=== PATIENT | female | born 1985 | race Caucasian/White ===

== ENCOUNTER 2019-10-07 10:34 | Outpatient (CLI) | payer SELFPAY ==
--- NOTE | 2019-10-07 | XR_ITS ---
WS: [id number] XR wrist RT min 3V* [id number] REASON FOR EXAM: WRIST PAIN ACUTE FINDINGS: Impacted fracture of the radius comminuted mild dorsal angulated. XR/XR wrist RT min 3V* [id number] IMPRESSION: Mild dorsal angulated impacted fracture of the radius.
== END 2019-10-07 10:35 | disposition home or self-care (01) ==
LOC: RADOUTREAD 12:23
PROVIDERS: Family Provider Nurse Practitioner Family; PCP Nurse Practitioner Family; Visit Provider Nurse Practitioner Family
DX: Z76.89 Persons encountering health services in other specified circumstances (principal)

== ENCOUNTER 2019-10-08 15:27 | Outpatient (CLI) | payer SELFPAY | END 2019-10-08 15:28 | disposition home or self-care (01) | LOC: SPT 15:28 | PROVIDERS: Family Provider Nurse Practitioner Family; PCP Nurse Practitioner Family; Visit Provider Orthopaedic Surgery | DX: S52.531A Colles' fracture of right radius, initial encounter for closed fracture (principal); X58.XXXA Exposure to other specified factors, initial encounter | CPT/HCPCS: L3982 ==

== ENCOUNTER → 2019-10-15 13:46 | Outpatient (BNVA) | payer SELFPAY | PROVIDERS: Family Provider Nurse Practitioner Family; PCP Nurse Practitioner Family; Visit Provider Orthopaedic Surgery | DX: S52.531A Colles' fracture of right radius, initial encounter for closed fracture (principal); X58.XXXA Exposure to other specified factors, initial encounter | CPT/HCPCS: 73110 ==

== ENCOUNTER → 2019-11-05 13:51 | Outpatient (BNVA) | payer SELFPAY | PROVIDERS: Family Provider Nurse Practitioner Family; PCP Nurse Practitioner Family; Visit Provider Orthopaedic Surgery | DX: S52.531A Colles' fracture of right radius, initial encounter for closed fracture (principal); X58.XXXA Exposure to other specified factors, initial encounter | CPT/HCPCS: 73110 ==

== ENCOUNTER → 2019-12-03 09:24 | Outpatient (BNVA) | payer SELFPAY | PROVIDERS: Family Provider Nurse Practitioner Family; PCP Nurse Practitioner Family; Visit Provider Orthopaedic Surgery | DX: S52.531A Colles' fracture of right radius, initial encounter for closed fracture (principal); X58.XXXA Exposure to other specified factors, initial encounter | CPT/HCPCS: 73110 ==

== ENCOUNTER 2021-07-02 12:42 | Emergency (ER) | payer OTHER, SELFPAY ==
[2021-07-02] VITALS (10 sets, daily range): BP systolic 112–141; BP diastolic 75–86; PULSE 71; RESP 16–18; TEMP 37; O2SAT 96–100; BMI 32.5
[2021-07-02 13:53] LABS: Basophils # 0.1 10^3/uL (0.0-0.1); Basophils % 0.7 %; Eosinophils # 0.1 10^3/uL (0.0-0.8); Eosinophils % 1.2 %; Hematocrit 39.8 % (37.0-47.0); Lymphocytes # 3.3 10^3/uL (0.8-4.8); Lymphocytes % 29.8 %; Mean Corpuscular HGB Conc 32.7 g/dL (30.0-36.0); Mean Corpuscular Hemoglobin 27.4 pg (28.0-34.0); Mean Corpuscular Volume 83.8 fl (81-99); Mean Platelet Volume 11.1 fL (7.4-10.4); Monocytes # 0.7 10^3/uL (0.2-0.9); Monocytes % 6.6 %; Neutrophils # 6.77 10^3/uL (1.8-7.7); Neutrophils % 61.4 %; Nucleated Red Blood Cells % 0 %; Platelet Count 343 10^3/cmm (130-400); Red Blood Count 4.75 10^6/uL (4.1-5.3); Red Cell Distribution Width 13.6 % (12.1-15.1)
[2021-07-02 14:08] LABS: Bilirubin Urine Neg (Negative); Blood Urine Neg (Negative); Glucose Urine UA Norm (Normal); HCG Qualitative Urine. Negative (Negative); Ketones Urine 1+ (Negative); Leukocyte Esterase Urine 2+ (Negative); Nitrate Urine Negative (Negative); Protein Urine Neg (Negative); Specific Gravity, Urine 1.025 (1.005-1.030); Urine Appearance Clear (CLEAR); Urine Color Yellow (Yellow); Urobilinogen Urine Norm (Negative); pH Urine 5 (5-7)
[2021-07-02 14:09] LABS: Add Urine Microscopic? YES
[2021-07-02 14:15] LABS: Add Urine Culture? No; Bacteria Urine 1+ /hpf; Mucus Urine 2+ /hpf; WBC Urine 0-4 /hpf (0-5)
[2021-07-02 14:17] LABS: Alanine Aminotransferase 23 U/L (0-33); Albumin Level 4.4 g/dL (3.5-5.2); Alkaline Phosphatase 81 IU/L (35-105); Anion Gap 17.9 (5-19); Aspartate Amino Transferase 17 U/L (0-32); Blood Urea Nitrogen 9 mg/dL (6-20); Calcium 8.5 mg/dL (8.5-10.5); Carbon Dioxide 20 mmol/L (22-29); Chloride 103 mmol/L (98-107); Globulin 2.9 g/dL (1.3-4.6); Glomerular Filtration Rate 82.1 mL/min (90-130); Glucose 73 mg/dL (65-115); Lipase 26 U/L (13-60); Osmolality Calculated 281 mOsm/kg (285-295); Potassium 3.9 mmol/L (3.5-5.1); Sodium 137 mmol/L (136-145); Total Bilirubin 0.4 mg/dL (0.15-1.2); Total Protein 7.3 g/dL (6.6-8.7)
--- NOTE | 2021-07-02 17:25 | USR_ITS ---
PROCEDURE INFORMATION: Exam: US Abdomen, Limited; Right Upper Quadrant Exam date and time: 07/02/2021 5:25 PM Age: 36 years old Clinical indication: Abdominal pain; Acute; Additional info: Ruq abd pain TECHNIQUE: Imaging protocol: US abdomen. Real time ultrasound with image documentation. Limited exam focused on the right upper quadrant. COMPARISON: No relevant prior studies available. FINDINGS: Liver: Hepatic steatosis. Gallbladder: Cholelithiasis. Gallbladder wall normal in thickness. Positive Castillo sign is seen. Common bile duct: Common bile duct dilated to 9.8 mm without obstructing lesion. Pancreas: Visualized pancreas is unremarkable. Right kidney: Normal. No mass. No hydronephrosis. US/US gall bladder [id number] IMPRESSION: 1. Cholelithiasis with common bile duct dilation to 9.8 mm and a positive Castillo sign may reflect an evolving cholecystitis. Nuclear medicine HIDA scan could further evaluate this. 2. Hepatic steatosis.
--- NOTE | 2021-07-02 17:32 | ED_ITS ---
Documented by User: Phu Herrmann DO 07/03/21 09:57 HPI - Abdominal Pain General: Chief Complaint: Abdominal Pain Stated Complaint: abd pains Time Seen by Provider: 07/02/21 16:27 History of Present Illness: HPI narrative: 36-year-old female presents emergency room complaining of abdominal pain for the last week. Patient reports she has a history of gallbladder dysfunction she notes anything she eats seems to cause nausea and abdominal cramping she is not had any vomiting or diarrhea with that usually last for several hours becoming increasingly more intense. She denies any medication melena hematemesis coffee-ground emesis. Stat C- section but no other previous abdominal surgeries MD elicited complaint: abdominal pain Onset (ago): week(s) Pain Consistency: constant Location: RUQ Severity: severe Quality: cramping Radiation: back Exacerbating factors: eating Relieving factors: nothing Associated Symptoms: Reports anorexia, bloating, change in bowel habits, change in stool character, GI cramping and poor appetite; Denies belching, chills, coffee ground emesis, constipation, diarrhea, dyspepsia, dysuria, excessive flatus, fever(s), heartburn, hematochezia, hematuria, hematemesis, fecal incontinence, loose stools, melena, nausea, syncope and vomiting Related Data: Date of Last Menstrual Period: 07/17/21 Review of Systems Const: Denies: fever(s) or chills ENMT: Denies: throat pain, ear or mastoid pain, nasal discharge or nasal congestion Card: Denies: syncope Resp: Denies: dyspnea, productive cough or non-productive cough GI: Reports: bloating, GI cramping, change in bowel habits and change in stool character; Denies: nausea, vomiting, hematemesis, coffee ground emesis, heartburn, diarrhea, constipation, belching, excessive flatus, fecal incontinence, hematochezia or melena : Denies: dysuria or hematuria Skin/Breast: Denies: rash or pruritus PFS ED PFSH: Medical History Cellulitis Tick bite Female Reproductive History: Date of last menstrual period: 07/17/21 Physical Exam Const: COMMON NORMALS: no acute distress GENERAL APPEARANCE: cooperative and comfortable ORIENTATION/CONSCIOUSNESS: Yes awake, Yes oriented to person, Yes oriented to place and Yes oriented to time HENMT: COMMON NORMALS: normocephalic, atraumatic and hearing grossly normal bilaterally HEAD & SCALP: normocephalic and atraumatic Neck/C-Spine: COMMON NORMALS: no JVD Resp: COMMON NORMALS: normal respiratory effort, No retractions, No use of accessory muscles and clear to auscultation bilaterally AUSCULTATION: clear to auscultation bilaterally Cardio: COMMON NORMALS: no JVD, regular rate, regular rhythm and No murmurs present (Cardio) RATE: regular rate RHYTHM: regular rhythm GI: COMMON NORMALS: No hepatosplenomegaly present AUSCULTATION: Yes normoactive bowel sounds PALPATION: Yes Tenderness to palpation present (GI) Details: RUQ (Positive Castillo sign), No Guarding due to palpation present (GI) and Yes No hepatosplenomegaly present Extremity: COMMON NORMALS: normal to inspection, capillary refill normal, no clubbing, cyanosis or edema, no calf tenderness and no pedal edema Neuro: SENSORIUM/ORIENTATION: Yes oriented to person, Yes oriented to place and Yes oriented to time Skin: COMMON NORMALS: no rashes or lesions noted GENERAL SKIN EXAM: no rashes or lesions noted Course Vital Signs: Vital signs: Vital Signs Temperature 98.6 F 07/02/21 13:38 Pulse Rate 84 07/03/21 01:37 Respiratory Rate 17 07/03/21 01:37 Blood Pressure 108/63 07/03/21 01:37 Pulse Oximetry 99 07/03/21 01:37 MDM - Abdominal Pain MDM Narrative: Medical decision making narrative: Laboratory test so far generally unremarkable. Ultrasound leg gallbladder however shows dilation of common bile duct MRCP has been ordered care turned over to Dr. Church at change shift see his notes for final diagnosis and disposition. Lab Data: Labs: Lab Results 07/02/21 07/02/21 07/02/21 13:46 13:46 13:50 WBC 11.0 10^3/uL H 10 ^3/uL (4.0-10.0) RBC 4.75 10^6/uL 10^6 /uL (4.1-5.3) Hgb 13.0 g/dL g/dL (11.5-15.3) Hct 39.8 % % (37.0-47.0) MCV 83.8 fl fl (81-99) MCH 27.4 pg L pg (28.0-34.0) MCHC 32.7 g/dL g/dL (30.0-36.0) RDW 13.6 % % (12.1-15.1) Plt Count 343 10^3/cmm 10^3 /cmm (130-400) MPV 11.1 fL H fL (7.4-10.4) Neut % (Auto) 61.4 % % Lymph % (Auto) 29.8 % % Wagoner % (Auto) 6.6 % % Eos % (Auto) 1.2 % % Baso % (Auto) 0.7 % % Neut # (Auto) 6.77 10^3/uL 10^3 /uL (1.8-7.7) Lymph # (Auto) 3.3 10^3/uL 10^3/ uL (0.8-4.8) Wagoner # (Auto) 0.7 10^3/uL 10^3/ uL (0.2-0.9) Eos # (Auto) 0.1 10^3/uL 10^3/ uL (0.0-0.8) Baso # (Auto) 0.1 10^3/uL 10^3/ uL (0.0-0.1) Nucleated RBC % (a uto) 0 % % Nucleated RBCs # 0.0 /100WBC /100W BC Sodium 137 mmol/L mmol/L (136-145) Potassium 3.9 mmol/L mmol/L (3.5-5.1) Chloride 103 mmol/L mmol/L (98-107) Carbon Dioxide 20 mmol/L L mmol/ L (22-29) Anion Gap 17.9 (5-19) BUN 9 mg/dL mg/dL (6-20) Creatinine 0.8 mg/dL mg/dL (0.5-0.9) GFR Calculation 82.1 mL/min L mL/ min (90-130) Glucose 73 mg/dL mg/dL (65-115) Calculated Osmolal ity 281 mOsm/kg L mOs m/kg (285-295) Calcium 8.5 mg/dL mg/dL (8.5-10.5) Total Bilirubin 0.4 mg/dL mg/dL (0.15-1.2) AST 17 U/L U/L (0-32) ALT 23 U/L U/L (0-33) Alkaline Phosphata se 81 IU/L IU/L (35-105) Total Protein 7.3 g/dL g/dL (6.6-8.7) Albumin 4.4 g/dL g/dL (3.5-5.2) Globulin 2.9 g/dL g/dL (1.3-4.6) Lipase 26 U/L U/L (13-60) HCG, Qual Negative (Negative) Urine Color Urine Appearance Urine pH Ur Specific Gravit y Urine Protein Urine Glucose (UA) Urine Ketones Urine Blood Urine Nitrate Urine Bilirubin Urine Urobilinogen Ur Leukocyte Raven ase Urine RBC Urine WBC Ur Squamous Epith Cells Amorphous Sediment Urine Bacteria Urine Mucus SARS-CoV-2 Ag (Rap id) 07/02/21 07/03/21 13:50 00:35 WBC RBC Hgb Hct MCV MCH MCHC RDW Plt Count MPV Neut % (Auto) Lymph % (Auto) Wagoner % (Auto) Eos % (Auto) Baso % (Auto) Neut # (Auto) Lymph # (Auto) Wagoner # (Auto) Eos # (Auto) Baso # (Auto) Nucleated RBC % (a uto) Nucleated RBCs # Sodium Potassium Chloride Carbon Dioxide Anion Gap BUN Creatinine GFR Calculation Glucose Calculated Osmolal ity Calcium Total Bilirubin AST ALT Alkaline Phosphata se Total Protein Albumin Globulin Lipase HCG, Qual Urine Color Yellow (Yellow) Urine Appearance Clear (CLEAR) Urine pH 5 (5-7) Ur Specific Gravit y 1.025 (1.005-1.030) Urine Protein Neg (Negative) Urine Glucose (UA) Norm (Normal) Urine Ketones 1+ H (Negative) Urine Blood Neg (Negative) Urine Nitrate Negative (Negative) Urine Bilirubin Neg (Negative) Urine Urobilinogen Norm mg/dL mg/dL (Negative) Ur Leukocyte Raven ase 2+ H (Negative) Urine RBC None /hpf /hpf (0-2) Urine WBC 0-4 /hpf H /hpf (0-5) Ur Squamous Epith Cells 5-10 /hpf H /hpf (0-5) Amorphous Sediment Not Reportable Urine Bacteria 1+ /hpf H /hpf (NONE) Urine Mucus 2+ /hpf /hpf SARS-CoV-2 Ag (Rap id) Negative (Negative) Discharge Plan Discharge Patient Disposition: Xfer Short-Term Hosp Clinical Impression: Abdominal pain Qualifiers: Abdominal location: right upper quadrant Qualified Code(s): R10.11 - Right upper quadrant pain Condition: Stable Referrals: SOTO Adair, JYOTHI [Primary Care Provider] - Patient Instructions: Abdominal Pain (ED) Coding Level of Care Code ED Garnett Machine Operator for [facility] Fwd Exam Comprehensive Documented by User: Lori Church MD 07/03/21 00:14 HPI - Abdominal Pain General: Chief Complaint: Abdominal Pain Stated Complaint: abd pains Time Seen by Provider: 07/02/21 16:27 PFSH ED PFSH: Medical History Cellulitis Tick bite Physical Exam Const: COMMON NORMALS: no acute distress, patient oriented x3 and healthy appearing HENMT: COMMON NORMALS: normocephalic and atraumatic HEAD & SCALP: normocephalic and atraumatic Eye: COMMON NORMALS: Equal, round and reactive pupils present and EOMs intact bilaterally PUPIL: Yes Equal, round and reactive pupils present Neck/C-Spine: COMMON NORMALS: full ROM and supple Chest: COMMONS NORMALS: normal inspection of the chest and normal palpation of entire chest wall Resp: COMMON NORMALS: normal respiratory effort, No retractions, No use of accessory muscles and clear to auscultation bilaterally AUSCULTATION: clear to auscultation bilaterally Cardio: COMMON NORMALS: regular rate, regular rhythm and No murmurs present (Cardio) RATE: regular rate RHYTHM: regular rhythm GI: COMMON NORMALS: Normal to inspection, nondistended, normoactive bowel sounds present, Soft to palpation and no masses PALPATION: Yes Soft to palpation and Yes Tenderness to palpation present (GI) Details: RUQ Extremity: COMMON NORMALS: normal to inspection and full ROM Neuro: COMMON NORMALS: patient oriented x3, moves all extremities and no focal motor deficits Psych: COMMON NORMALS: mental status grossly normal, Normal thought process present and cooperative THOUGHT PROCESS: Normal thought process present Skin: COMMON NORMALS: no rashes or lesions noted and no wounds GENERAL SKIN EXAM: no rashes or lesions noted Course Vital Signs: Vital signs: Vital Signs Temperature 98.6 F 07/02/21 13:38 Pulse Rate 84 07/03/21 01:37 Respiratory Rate 17 07/03/21 01:37 Blood Pressure 108/63 07/03/21 01:37 Pulse Oximetry 99 07/03/21 01:37 MDM - Abdominal Pain MDM Narrative: Medical decision making narrative: Patient presents here with right upper quadrant abdominal pain has been severe in nature she is required multiple doses of Dilaudid imaging here showed dilatated common bile duct along with a gallstone. Patient given IV antibiotics I spoke to surgeon on-call Dr. Coburn who felt patient likely needs an ERCP and transfer to higher level of care for GI I spoke to physician at [place] and will transfer there. Lab Data: Labs: Lab Results 07/02/21 07/02/21 07/02/21 13:46 13:46 13:50 WBC 11.0 10^3/uL H 10 ^3/uL (4.0-10.0) RBC 4.75 10^6/uL 10^6 /uL (4.1-5.3) Hgb 13.0 g/dL g/dL (11.5-15.3) Hct 39.8 % % (37.0-47.0) MCV 83.8 fl fl (81-99) MCH 27.4 pg L pg (28.0-34.0) MCHC 32.7 g/dL g/dL (30.0-36.0) RDW 13.6 % % (12.1-15.1) Plt Count 343 10^3/cmm 10^3 /cmm (130-400) MPV 11.1 fL H fL (7.4-10.4) Neut % (Auto) 61.4 % % Lymph % (Auto) 29.8 % % Wagoner % (Auto) 6.6 % % Eos % (Auto) 1.2 % % Baso % (Auto) 0.7 % % Neut # (Auto) 6.77 10^3/uL 10^3 /uL (1.8-7.7) Lymph # (Auto) 3.3 10^3/uL 10^3/ uL (0.8-4.8) Wagoner # (Auto) 0.7 10^3/uL 10^3/ uL (0.2-0.9) Eos # (Auto) 0.1 10^3/uL 10^3/ uL (0.0-0.8) Baso # (Auto) 0.1 10^3/uL 10^3/ uL (0.0-0.1) Nucleated RBC % (a uto) 0 % % Nucleated RBCs # 0.0 /100WBC /100W BC Sodium 137 mmol/L mmol/L (136-145) Potassium 3.9 mmol/L mmol/L (3.5-5.1) Chloride 103 mmol/L mmol/L (98-107) Carbon Dioxide 20 mmol/L L mmol/ L (22-29) Anion Gap 17.9 (5-19) BUN 9 mg/dL mg/dL (6-20) Creatinine 0.8 mg/dL mg/dL (0.5-0.9) GFR Calculation 82.1 mL/min L mL/ min (90-130) Glucose 73 mg/dL mg/dL (65-115) Calculated Osmolal ity 281 mOsm/kg L mOs m/kg (285-295) Calcium 8.5 mg/dL mg/dL (8.5-10.5) Total Bilirubin 0.4 mg/dL mg/dL (0.15-1.2) AST 17 U/L U/L (0-32) ALT 23 U/L U/L (0-33) Alkaline Phosphata se 81 IU/L IU/L (35-105) Total Protein 7.3 g/dL g/dL (6.6-8.7) Albumin 4.4 g/dL g/dL (3.5-5.2) Globulin 2.9 g/dL g/dL (1.3-4.6) Lipase 26 U/L U/L (13-60) HCG, Qual Negative (Negative) Urine Color Urine Appearance Urine pH Ur Specific Gravit y Urine Protein Urine Glucose (UA) Urine Ketones Urine Blood Urine Nitrate Urine Bilirubin Urine Urobilinogen Ur Leukocyte Raven ase Urine RBC Urine WBC Ur Squamous Epith Cells Amorphous Sediment Urine Bacteria Urine Mucus SARS-CoV-2 Ag (Rap id) 07/02/21 07/03/21 13:50 00:35 WBC RBC Hgb Hct MCV MCH MCHC RDW Plt Count MPV Neut % (Auto) Lymph % (Auto) Wagoner % (Auto) Eos % (Auto) Baso % (Auto) Neut # (Auto) Lymph # (Auto) Wagoner # (Auto) Eos # (Auto) Baso # (Auto) Nucleated RBC % (a uto) Nucleated RBCs # Sodium Potassium Chloride Carbon Dioxide Anion Gap BUN Creatinine GFR Calculation Glucose Calculated Osmolal ity Calcium Total Bilirubin AST ALT Alkaline Phosphata se Total Protein Albumin Globulin Lipase HCG, Qual Urine Color Yellow (Yellow) Urine Appearance Clear (CLEAR) Urine pH 5 (5-7) Ur Specific Gravit y 1.025 (1.005-1.030) Urine Protein Neg (Negative) Urine Glucose (UA) Norm (Normal) Urine Ketones 1+ H (Negative) Urine Blood Neg (Negative) Urine Nitrate Negative (Negative) Urine Bilirubin Neg (Negative) Urine Urobilinogen Norm mg/dL mg/dL (Negative) Ur Leukocyte Raven ase 2+ H (Negative) Urine RBC None /hpf /hpf (0-2) Urine WBC 0-4 /hpf H /hpf (0-5) Ur Squamous Epith Cells 5-10 /hpf H /hpf (0-5) Amorphous Sediment Not Reportable Urine Bacteria 1+ /hpf H /hpf (NONE) Urine Mucus 2+ /hpf /hpf SARS-CoV-2 Ag (Rap id) Negative (Negative) Discharge Plan Discharge Patient Disposition: Xfer Short-Term Hosp Clinical Impression: Abdominal pain Qualifiers: Abdominal location: right upper quadrant Qualified Code(s): R10.11 - Right upper quadrant pain Condition: Stable Referrals: SOTO Adair, JYOTHI [Primary Care Provider] - Patient Instructions: Abdominal Pain (ED) Coding Level of Care Code ED [facility]ett Machine Operator for [facility] Fwd Exam Comprehensive
--- NOTE | 2021-07-02 18:02 | MRR_ITS ---
PROCEDURE INFORMATION: Exam: MR Abdomen Without Contrast Exam date and time: 07/02/2021 6:02 PM Age: 36 years old Clinical indication: Abdominal pain; Acute; Additional info: Dilated common bile duct right upper quadrant abdominal pain TECHNIQUE: Imaging protocol: MR of the abdomen without contrast. COMPARISON: US gall bladder [id number] 07/02/2021 5:55 PM FINDINGS: Liver: No mass. Gallbladder and bile ducts: There is a 2 cm gallstone at the gallbladder neck. No gallbladder wall thickening or pericholecystic fluid. Dilated common bile duct up to 1.5 cm. There is also moderate dilation of the central intrahepatic biliary system which becomes mildly dilated more peripherally. No filling defect is seen within the common bile duct to indicate choledocholithiasis. There is abrupt tapering at the distal common bile duct. There does appear to be a portion of the distal common bile duct which is normal caliber which is best seen on series 11, image 8. Pancreas: Unremarkable. No ductal dilation. Spleen: Unremarkable. No splenomegaly. Adrenal glands: Unremarkable. No mass. Kidneys and ureters: Unremarkable. No solid mass. No hydronephrosis. Stomach and bowel: Visualized stomach and intestines are unremarkable. Intraperitoneal space: No free fluid. Arteries: No abdominal aortic aneurysm. Bones/joints: Unremarkable. Soft tissues: Unremarkable. MR/MR MRCP [id number] IMPRESSION: 1. Markedly dilated common bile duct up to 1.5 cm with abrupt tapering distally as well as moderate intrahepatic biliary dilation centrally. No filling defect is seen to suggest choledocholithiasis. There does appear to be a segment of the distal common bile duct which is normal in caliber. Findings are most suggestive of either focal stricturing or potentially choledochal cysts (type IV). 2. There is a 2 cm stone in the gallbladder neck without MR findings to suggest acute cholecystitis.
[2021-07-02] MEDS: sodium chloride 0.9% 1,000 ML 999 ML IV (18:17)
[2021-07-02] MEDS: morphine 4 mg/mL SDV 1 mL IVP (18:20)
[2021-07-02] MEDS: ondansetron 2 mg/ML SDV 2 mL 4 MG IVP ×2 (18:20→19:24)
--- NOTE | 2021-07-02 18:41 | PC.NURSE ---
Pt to [facility] now via EMS for MRI.
[2021-07-02] MEDS: diphenhydrAMINE 50 mg/mL SDV 1mL IVP (19:23)
[2021-07-02] MEDS: HYDROmorphone 1 mg/mL INJ 1 mL IVP (19:23)
[2021-07-02] MEDS: metoclopramide 5 mg/mL SDV 2 mL 10 MG IVP (19:24)
[2021-07-02] MEDS: piperacillin-tazobactam 3.375 GM in sodium chloride 0.9% (plus) 50 ML IV (21:54)
--- NOTE | 2021-07-02 23:29 | PC.NURSE ---
Pt resting in bed. Rates pain 2/10; much improved. Call light in reach. Lights off at patient request.
[2021-07-03 00:37] VITALS: BP 105/67; PULSE 82; RESP 18; O2SAT 99
[2021-07-03 00:59] LABS: SARS Covid-2 Antigen Negative (Negative)
[2021-07-03 01:37] VITALS: BP 108/63; PULSE 84; RESP 17; O2SAT 99
== END 2021-07-03 03:13 | disposition short-term general hospital (02) ==
PROVIDERS: Emergency Medicine; Emergency Provider Emergency Medicine; PCP Nurse Practitioner Family
DX: R10.11 Right upper quadrant pain (principal); Z20.822 Contact with and (suspected) exposure to COVID-19
CPT/HCPCS: 36415; 74181; 76705; 80053; 81001; 81025; 83690; 85025; 87426; 96365; 96375; 96376; 99285; J1170; J1200; J2270; J2405; J2543; J2765; J7030

== ENCOUNTER → 2021-07-14 12:09 | Outpatient (BNVA) | payer SELFPAY | PROVIDERS: PCP Nurse Practitioner Family; Visit Provider Family Medicine | DX: Z90.49 Acquired absence of other specified parts of digestive tract (principal) | CPT/HCPCS: 80053 ==

== ENCOUNTER → 2022-02-14 11:05 | Outpatient (BNVA) | payer SELFPAY | PROVIDERS: PCP Nurse Practitioner Family; Visit Provider Nurse Practitioner Family | DX: N89.8 Other specified noninflammatory disorders of vagina (principal); N93.9 Abnormal uterine and vaginal bleeding, unspecified; Z12.4 Encounter for screening for malignant neoplasm of cervix; Z00.00 Encounter for general adult medical examination without abnormal findings | CPT/HCPCS: 87070; 87077; 87184; 87205; 88175 ==

== ENCOUNTER → 2022-03-03 12:55 | Outpatient (BNVA) | payer SELFPAY | PROVIDERS: PCP Nurse Practitioner Family; Visit Provider Obstetrics & Gynecology | DX: N93.9 Abnormal uterine and vaginal bleeding, unspecified (principal); N88.8 Other specified noninflammatory disorders of cervix uteri | CPT/HCPCS: 76830 ==